=== PATIENT | female | born 1980 | race Caucasian/White ===

== ENCOUNTER 2025-03-27 09:11 | Emergency (ER) | payer MEDICAID ==
[~2025-03-27] VITALS: Ht 157.5 cm; Wt 64.0 kg
[2025-03-27 09:17] VITALS: O2SAT 100
[2025-03-27 09:34] LABS: BASOPHILS % 0.7 % (0.0-2.0); EOSINOPHILS % 0.8 % (0.0-5.0); HEMATOCRIT. 38.7 % (36.0-48.0); HEMOGLOBIN. 12.6 g/dL (12.0-16.0); LYMPHOCYTES % 35.1 % (20.0-50.0); MEAN CORPUSCULAR HEMOGLOBIN 29.1 pg (28.0-32.0); MEAN CORPUSCULAR HGB CONC 32.5 g/dL (31.0-37.0); MEAN CORPUSCULAR VOLUME 89.8 fL (81.0-99.0); MEAN PLATELET VOLUME 7.9 fl (7.4-10.4); MONOCYTES % 8.7 % (2.0-8.0); NEUTROPHILS % 54.7 % (40.0-76.0); PLATELET 303 x1000/uL (130-400); RED BLOOD CELL COUNT 4.31 mill/uL (4.2-5.4); RED CELL DISTRIBUTION WIDTH 12.7 % (11.6-14.6); WHITE BLOOD COUNT 7.3 x1000/uL (4.5-11.0)
[2025-03-27 09:55] LABS: CLARITY URINE CLEAR (CLEAR); COLOR URINE YELLOW (YELLOW); GLUCOSE URINE NEGATIVE (NEGATIVE); KETONES URINE NEGATIVE (NEGATIVE); LEUKOCYTE ESTERASE URINE NEGATIVE (NEGATIVE); NITRITE URINE NEGATIVE (NEGATIVE); OCCULT BLOOD URINE 1+ (NEGATIVE); PROTEIN URINE NEGATIVE (NEGATIVE); SPECIFIC GRAVITY URINE 1.017 (1.005-1.030); UROBILINOGEN URINE 0.2 E.U./dL (0.2-1.0)
[2025-03-27 09:57] LABS: CHLORIDE 107 mEq/L (98-107); POTASSIUM 4.2 mEq/L (3.5-5.1); SODIUM 142 mEq/L (136-145)
[2025-03-27 09:58] LABS: CARBON DIOXIDE 26 mEq/L (21-32)
[2025-03-27 09:59] LABS: CALCIUM 8.9 mg/dL (8.7-10.4); HCG SCREEN NEGATIVE
[2025-03-27 10:03] LABS: CREATININE 0.6 mg/dL (0.6-1.0); GLUCOSE 98 mg/dL (70-105); UREA NITROGEN BLOOD 8 mg/dL (9-23)
[2025-03-27] MEDS: KETOROLAC 30MG/ML VIAL IM NR (10:08)
[2025-03-27] MEDS ORDERED: IBUP-2030 MT (10:44)
[2025-03-27 10:48] VITALS: BP 130/62; PULSE 72; RESP 19; TEMP 36.8; O2SAT 99
[2025-03-27 11:26] LABS: SQUAMOUS EPITHELIAL CELL URINE 2+ /lpf (RARE/1+)
[2025-03-27 11:29] LABS: BACTERIA URINE TRACE; RBC URINE 0-2 /hpf (0-2)
[2025-03-27 11:31] LABS: WBC URINE NONE SEEN /hpf (0-2)
[2025-03-27 11:33] LABS: YEAST URINE NONE SEEN
== END 2025-03-27 10:49 | disposition home or self-care (01) ==
LOC: ER 09:11
DX: N93.8 Other specified abnormal uterine and vaginal bleeding (principal); Z32.02 Encounter for pregnancy test, result negative; Z55.6 Problems related to health literacy; Z79.899 Other long term (current) drug therapy
CPT/HCPCS: 99283; 80048; 81003; 81025; 84703; 85025; 36415; 96372; J1885